=== PATIENT | female | born 1985 | race African-American/Black ===

== ENCOUNTER 2019-12-12 17:15 | Inpatient (IN) ==
[2019-12-12] MEDS ORDERED: ONDANSETRON 4 MG/2 ML VIAL IV PRN (17:49)
[2019-12-12] MEDS ORDERED: BUTORPHANOL 1 MG/ML VIAL IV PRN (17:49)
[2019-12-12] MEDS ORDERED: AMPICILLIN INJ 2,000 MG in SODIUM CHLORIDE 0.9% 100 ML IV ONE (17:52)
[2019-12-12 18:26] LABS: Basophils # 0.1 10*3/uL (0.0-0.2); Basophils % 0.4 % (0.0-0.8); Eosinophils # 0.2 10*3/uL (0.0-0.87); Eosinophils % 1.4 % (0.00-10.9); Hemoglobin 8.3 GM/DL (12.0-16.0); Immature Granulocytes % 1.7 %; Immature Granulocytes Absolute 0.22 #; Lymphocytes # 2.1 10*3/uL (1.4-4.0); Lymphocytes % 16.1 % (21.3-54.2); Mean Corpuscular HGB Conc 31.9 GM/DL (32-36); Mean Corpuscular Volume 87.2 FL (87-102); Mean Platelet Volume 9.7 FL (9.6-12.0); Monocytes % 7.1 % (1.7-12.7); Neutrophils % 73.3 % (38.7-73.9); Platelet Count 290 T/CUMM (130-400); Red Blood Count 2.98 MC/CUMM (3.8-5.5); Red Cell Distribution Width 14.2 % (9.3-17.3); White Blood Count 13.2 T/CUMM (4-12)
[2019-12-12 18:53] LABS: Alanine Aminotransferase 10 U/L (13-56); Albumin 2.6 G/DL (3.4-5.0); Alkaline Phosphatase 212 U/L (45-117); Aspartate Amino Transferase 14 U/L (0-37); Bilirubin,Total < 0.39 MG/DL (0.2-1.0); Blood Urea Nitrogen 3 MG/DL (7-18); Calcium 8.9 MG/DL (8.5-10.1); Estimated Glom Filtration Rate 145 ML/MIN; Glucose 78 MG/DL (74-106); Osmolality,Calculated 261.4 MOS/KG (273-304); Total Protein 7.5 G/DL (6.4-8.3); Uric Acid 2.7 MG/DL (2.6-6.0)
[2019-12-12] MEDS: LACTATED RINGERS 1,000 ML IV SCH (19:21)
[2019-12-12] MEDS: BETAMETH SODIUM PHOS/ACETATE 30 MG/5 ML VIAL IM SCH (20:13)
[2019-12-12] MEDS: BUTORPHANOL 2 MG/ML VIAL IV PRN (20:21)
[2019-12-12] MEDS: AMPICILLIN INJ 1,000 MG in SODIUM CHLORIDE 0.9% 100 ML IV SCH (22:46)
[2019-12-13] MEDS: MEPERIDINE 50 MG/1 ML VIAL IV PRN ×2 (00:51→04:35)
[2019-12-13] MEDS: AMPICILLIN INJ 1,000 MG in SODIUM CHLORIDE 0.9% 100 ML IV SCH ×4 (02:22→14:11)
[2019-12-13] MEDS: LACTATED RINGERS 1,000 ML IV SCH (02:59)
[2019-12-13] MEDS: BUTORPHANOL 2 MG/ML VIAL IV PRN (07:37)
[2019-12-13] MEDS: BETAMETH SODIUM PHOS/ACETATE 30 MG/5 ML VIAL IM SCH (07:38)
[2019-12-13] MEDS ORDERED: CITRIC ACID/SODIUM CITRATE 30 ML UDCUP PO ONE (08:47)
[2019-12-13] MEDS ORDERED: LACTATED RINGERS 1,000 ML IV ONE (08:47)
[2019-12-13] MEDS ORDERED: FAMOTIDINE 20 MG/2 ML VIAL IV ONE (08:47)
[2019-12-13] MEDS ORDERED: ePHEDrine 50 MG/ML AMP IV PRN ×2 (08:47→08:52)
[2019-12-13] MEDS ORDERED: diphenhydrAMINE 50 MG/1 ML VIAL IV PRN ×2 (08:52)
[2019-12-13] MEDS ORDERED: ONDANSETRON 4 MG/2 ML VIAL IV ONE (08:52)
[2019-12-13] MEDS ORDERED: fentaNYL 2 MCG/ROPIV 0.2% EPID 100 ML EPIDURAL SCH (09:00)
[2019-12-13] MEDS ORDERED: OXYTOCIN/LR 20 UNIT/1,000 ML BAG IV SCH (09:30)
[2019-12-13 15:41] LABS: Apearance,Urine CLEAR (Clear); Bilirubin,Urine Negative (Negative); Blood, Urine Small mg/dL (Negative); Glucose,Urine (UA) Negative (Negative); Ketones,Urine Negative (Negative); Nitrite,Urine Negative (Negative); Protein,Urine Negative; RBC,Urine 13 /HPF (0-4); Urine Color Straw (Yellow); Urine Specific Gravity 1.011 (1.001-1.035); Urine Urobilinogen < 2.0 EU/DL (0.2-1.0); WBC,Urine 2 /HPF (0-6)
[2019-12-13] MEDS ORDERED: ceFAZolin 2,000 MG in PREMIX 1 EACH IV ONE (15:47)
[2019-12-13] MEDS ORDERED: OXYTOCIN 10 UNIT/ML VIAL IM ONE (15:48)
[2019-12-13] MEDS ORDERED: OXYTOCIN/LR 30 UNIT/1,000 ML BAG IV ONE (15:49)
[2019-12-13] MEDS ORDERED: KETOROLAC 60 MG/2 ML VIAL IM ONE (16:04)
[2019-12-13] MEDS ORDERED: LIDOCAINE MPF 2% /EPI 20 ML VIAL ONE (16:04)
[2019-12-13] MEDS ORDERED: MORPHINE 10 MG/10 ML VIAL ONE (16:04)
[2019-12-13] MEDS ORDERED: HYDROmorphone 2 MG/1 ML VIAL IV PRN ×2 (17:17→17:56)
[2019-12-13] MEDS ORDERED: hydrOXYzine HCL 25 MG/1 ML VIAL IM PRN (17:17)
[2019-12-13] MEDS ORDERED: propofoL 200 MG/20 ML VIAL IV ONE (17:26)
[2019-12-13] MEDS ORDERED: fentaNYL 100 MCG/2 ML VIAL ONE (17:26)
[2019-12-13] MEDS ORDERED: PHENYLEPHRINE 1 MG/10 ML SYRINGE IV ONE (17:26)
[2019-12-13] MEDS ORDERED: SUCCINYLCHOLINE 200 MG/10 ML VIAL ONE (17:27)
[2019-12-13 17:57] LABS: Cord Venous Blood HCO3 21.4 MMOL/L; Cord Venous Blood PO2 40.6
[2019-12-13] MEDS ORDERED: ONDANSETRON 4 MG/2 ML VIAL IV PRN (18:11)
[2019-12-13] MEDS ORDERED: ACETAMINOPHEN 325 MG TABLET PO PRN (18:11)
[2019-12-13] MEDS ORDERED: OXYTOCIN/LR 20 UNIT/1,000 ML BAG IV ONE (18:11)
[2019-12-13] MEDS ORDERED: RHO(D) IMMUNE GLOBULIN 300 MCG SYRINGE IM ONE (18:11)
[2019-12-13] MEDS ORDERED: LACTATED RINGERS 1,000 ML IV SCH (18:30)
[2019-12-13] MEDS: IBUPROFEN 800 MG TABLET PO PRN (20:55)
[2019-12-13] MEDS: DOCUSATE SODIUM 100 MG CAPSULE PO SCH (21:09)
[2019-12-13] MEDS ORDERED: KETOROLAC 30 MG/1 ML VIAL IV SCH (23:00)
[2019-12-13] MEDS: ceFAZolin 1,000 MG in SYRINGE 1 EACH IV SCH (23:29)
[2019-12-14 04:53] LABS: Basophils % 0.1 % (0.0-0.8); Hematocrit 21.5 VOL% (35.7-47.0); Hemoglobin 6.8 GM/DL (12.0-16.0); Immature Granulocytes % 4.4 %; Immature Granulocytes Absolute 0.93 #; Lymphocytes # 2.7 10*3/uL (1.4-4.0); Lymphocytes % 12.7 % (21.3-54.2); Mean Corpuscular HGB Conc 31.6 GM/DL (32-36); Mean Corpuscular Volume 88.8 FL (87-102); Monocytes % 6.2 % (1.7-12.7); Neutrophils % 76.6 % (38.7-73.9); Platelet Count 253 T/CUMM (130-400); Red Blood Count 2.42 MC/CUMM (3.8-5.5); Red Cell Distribution Width 14.2 % (9.3-17.3); White Blood Count 21.3 T/CUMM (4-12)
[2019-12-14 05:14] LABS: Band Neutrophils 2 % (0-10); Eosinophils 1 % (0-10); Hypochromasia 1+; Lymphocytes 11 % (20-55); Platelet Estimate Adequate; Segmented Neutrophils 80 % (50-85); Total Cells Counted 100
[2019-12-14] MEDS ORDERED: SODIUM CHLORIDE 0.9% 1,000 ML IV PRN (07:40)
[2019-12-14] MEDS: DOCUSATE SODIUM 100 MG CAPSULE PO SCH ×2 (09:21→21:09)
[2019-12-14] MEDS: MULTIVITAMIN (PRENATAL) TABLET PO SCH (09:21)
[2019-12-14] MEDS: IBUPROFEN 800 MG TABLET PO PRN ×2 (09:22→17:13)
[2019-12-14] MEDS: MAGNESIUM HYDROXIDE SUSP 30 ML UDCUP PO PRN (09:22)
[2019-12-14] MEDS: SIMETHICONE CHEW 80 MG TABLET PO PRN (09:23)
[2019-12-14] MEDS: ceFAZolin 1,000 MG in SYRINGE 1 EACH IV SCH (11:56)
[2019-12-14] MEDS ORDERED: MEPERIDINE 50 MG/1 ML VIAL IM ONE (12:48)
[2019-12-14 17:55] LABS: Hematocrit 31.2 VOL% (35.7-47.0)
[2019-12-14 17:59] LABS: Hemoglobin 9.8 GM/DL (12.0-16.0)
[2019-12-14] MEDS: guaiFENesin/CODEINE 5 ML LIQUID PO PRN (21:21)
[2019-12-14] MEDS: FLUTICASONE 50 MCG NASAL SPRAY 16 GM BOTTLE BOTH NARES SCH (23:56)
[2019-12-15] MEDS: DOCUSATE SODIUM 100 MG CAPSULE PO SCH ×2 (02:21→10:17)
[2019-12-15] MEDS: guaiFENesin/CODEINE 5 ML LIQUID PO PRN (04:35)
[2019-12-15] MEDS: IBUPROFEN 800 MG TABLET PO PRN (05:24)
[2019-12-15 09:05] VITALS: BP 104/65
[2019-12-15] MEDS: MAGNESIUM HYDROXIDE SUSP 30 ML UDCUP PO PRN (10:17)
[2019-12-15] MEDS: FLUTICASONE 50 MCG NASAL SPRAY 16 GM BOTTLE BOTH NARES SCH (10:17)
[2019-12-15] MEDS: MULTIVITAMIN (PRENATAL) TABLET PO SCH (10:17)
[2019-12-15] MEDS: SIMETHICONE CHEW 80 MG TABLET PO PRN (10:17)
== END 2019-12-15 14:45 | disposition home or self-care (01) | DRG 540 ==
LOC: N.LDOUT 17:15 → N.LD 17:19 → N.OB 12-13 20:45
PROVIDERS: ADMIT Obstetrics & Gynecology; ATTEND Obstetrics & Gynecology
PROC: LDCSECT (ICD-10-PCS; 2019-12-13 16:00)